=== PATIENT | female | born 1970 | race Caucasian/White ===

== ENCOUNTER 2016-06-29 23:59 | Emergency (ER) | payer OTHER ==
[~2016-06-29 23:59] MED LIST: CALCIUM PO; LORATADINE PO; MEDROL4 MG/DOSE- PO; NAPROSYN500 MG PO; TRAMADOL HCL50 M2 PO; TYLOX1 CAP 5/50 PO; VITAM PO; ZANAFLEX4 M1 PO
== END 2016-06-30 | disposition left against medical advice (07) ==
LOC: CED 23:59
DX: Z53.21 Procedure and treatment not carried out due to patient leaving prior to being seen by health care provider (principal)